=== PATIENT | female | born 1995 | race Caucasian/White ===

== ENCOUNTER 2018-05-11 21:22 | Emergency (ER) | payer BC ==
[~2018-05-11] VITALS: Ht 157.5 cm; Wt 50.0 kg
[2018-05-11 21:31] VITALS: TEMP 99.6
[2018-05-11] MEDS ORDERED: AVIANE 0.02 MG-1 TAB PO (21:34)
[2018-05-11] MEDS ORDERED: ZOFRAN 4MG T4 MG/TAB PO (22:40)
[2018-05-11 23:13] LABS: COLLECTION METHOD CLEAN CATCH
[2018-05-11 23:22] LABS: MUCOUS Present /lpf; PH 6 (5-8); URINE APPEARANCE Hazy; URINE BACTERIA Occasional /hpf; URINE BILIRUBIN Negative (NEGATIVE); URINE BLOOD 2+ (NEGATIVE); URINE COLOR Yellow; URINE GLUCOSE Negative (NEGATIVE); URINE KETONE 1+ (NEGATIVE); URINE LEUKOCYTE ESTERASE Trace (NEGATIVE); URINE NITRATE Negative (NEGATIVE); URINE PROTEIN(semi-quant) 1+ (NEGATIVE); URINE RBC 0-2 /hpf; URINE UROBILINOGEN Negative (NEGATIVE)
[2018-05-11 23:49] VITALS: BP 103/73; PULSE 112
[2018-05-11] MEDS ORDERED: CEPHALEXIN500 M1 PO (23:54)
== END 2018-05-12 00:02 | disposition home or self-care (01) ==
LOC: COL.ER 21:22
PROVIDERS: Physician Assistant
DX: N39.0 Urinary tract infection, site not specified (principal); E86.0 Dehydration; I95.9 Hypotension, unspecified
CPT/HCPCS: J2405; J7030